=== PATIENT | male | born 1980 | race Caucasian/White ===

== ENCOUNTER → 2021-05-31 07:44 | Outpatient (CLI) | payer BC, OTHER, SELFPAY ==
[2021-05-31 10:34] LABS: COVID19 -Nasal RAPID POSITIVE (Negative)
== END ==
PROVIDERS: Visit Provider Physician Assistant
DX: U07.1 COVID-19 (principal)
CPT/HCPCS: 87635

== ENCOUNTER 2022-06-13 15:10 | Emergency (ER) | payer BC, OTHER, SELFPAY ==
[2022-06-13] VITALS (11 sets, daily range): BP systolic 129–135; BP diastolic 59–79; PULSE 72–82; RESP 15–16; TEMP 35.9; O2SAT 93–98; BMI 36.9
--- NOTE | 2022-06-13 15:24 | DI.CT.S_ITS ---
PROCEDURE: CT FACIAL BONES WO CON INDICATIONS: passed out at [facility], face planted into toolbox TECHNIQUE: Noncontrast 2.5 mm thick axial images acquired from the mandible through the frontal sinuses, with coronal and sagittal reformatting. For radiation dose reduction, the following was used: automated exposure control, adjustment of mA and/or kV according to patient size. COMPARISON: None. FINDINGS: Image quality: Excellent. Bones and teeth: Comminuted and displaced bilateral nasal bone fractures. Adjacent soft tissue swelling. Hemorrhage and packing material in the left nasal cavities. Remaining facial osseous structures intact. Partially visualized upper cervical spine is in normal alignment. Sinuses: Paranasal sinuses are aerated, without fluid levels, mucosal thickening, or mucoceles. Mastoid air cells are aerated. Soft tissues: There are a few tiny punctate radiopaque foreign bodies on the skin surface, potentially within small abrasions. Vascular: Visualized vascular structures appear normal in the absence of contrast. Bony vascular foramina and canals are intact. IMPRESSION: Bilateral comminuted and displaced bilateral nasal bone fractures with adjacent soft tissue swelling. Hemorrhage and packing material in the nasal cavities. No nasal septal fracture identified. Dictated by: Toan Guevara M.D. on 06/13/2022 at 15:54 Approved by: Toan Guevara M.D. on 06/13/2022 at 15:56
--- NOTE | 2022-06-13 15:24 | DI.CT.S_ITS ---
PROCEDURE: CT HEAD/BRAIN WO CON INDICATIONS: passed out at [facility], face planted into toolbox TECHNIQUE: Noncontrast 4.5 mm thick angled axial sections acquired from the foramen magnum to the vertex, with coronal and sagittal reformats. For radiation dose reduction, the following was used: automated exposure control, adjustment of mA and/or kV according to patient size. COMPARISON: None. FINDINGS: Image quality: Excellent. CSF spaces: Basal cisterns are patent. No extra-axial fluid collections. Ventricles are normal in size and shape. Brain: No midline shift. No intracranial masses or hemorrhage. Diaz-white matter interface is normal. Skull and face: Partially visualized nasal bone fractures, comminuted and displaced. Sinuses: Visualized sinuses and mastoids are clear. IMPRESSION: No acute intracranial finding. Dictated by: Toan Guevara M.D. on 06/13/2022 at 15:57 Approved by: Toan Guevara M.D. on 06/13/2022 at 15:57
--- NOTE | 2022-06-13 15:24 | DI.RAD.S_ITS ---
PROCEDURE: XR CHEST 1V INDICATIONS: chest pain TECHNIQUE: One view of the chest was acquired. COMPARISON: [facility], CT, CT FACIAL BONES WO CON, 06/13/2022, 15:30. FINDINGS: Surgical changes and devices: None. Lungs and pleura: Lungs are clear. No pleural effusions or pneumothorax. Mediastinum: Mediastinal contours appear normal. Heart size is normal. Bones and chest wall: No suspicious bony lesions. Overlying soft tissues appear unremarkable. IMPRESSION: No acute cardiopulmonary process demonstrated radiographically. Dictated by: Toan Guevara M.D. on 06/13/2022 at 15:58 Approved by: Toan Guevara M.D. on 06/13/2022 at 15:58
--- NOTE | 2022-06-13 16:20 | PC.NURSE ---
Pt has paper towels in nose with moderate bleeding from nares. Pt also has minor abrasions to right check.
--- NOTE | 2022-06-13 17:01 | PC.NURSE ---
Pt was getting a tattoo when he reports feeling dizzy and lightheaded. He got up to go to the bathroom then passed out and his face hit a toolbox. Pt has swelling and a laceration to his nose with abrasion to his right check. He denies changes in vision. Denies chest pain, SOB prior to event. Pt reports a history of 2 rhinoplasties for deviated septums in 2000 in 2004. Pt denies pain currently.
[2022-06-13] MEDS: SODIUM CHLORIDE 0.9% 1,000 ML 1000 ML IV (17:24)
[2022-06-13 17:27] LABS: Add Manual Diff / Slide Review NO; Basophils Absolute Auto 0 /uL (0-100); Basophils Percent Auto 0.2 % (0-2); Eosinophils Absolute Auto 100 /uL (0-450); Eosinophils Percent Auto 1.1 % (2-4); Hematocrit 42.6 % (41-53); Lymphocytes Absolute Auto 2100 /uL (1100-4500); Lymphocytes Percent Auto 16.1 % (25-40); Mean Corpuscular HGB Conc 35.3 % (30-36); Mean Corpuscular Hemoglobin 29.2 PG (26-34); Mean Corpuscular Volume 82.8 fL (80-100); Monocytes Absolute Auto 600 /uL (0-900); Monocytes Percent Auto 4.4 % (3-14); Neutrophils Absolute Auto 10300 /uL (1500-7000); Neutrophils Percent Auto 78.2 % (50-75); Platelet Count 201 X10^3/uL (150-400); Red Blood Cell Count 5.15 X10^6/uL (4.5-5.9); Red Cell Distribution Width 13.3 % (11.6-14.8); White Blood Cell Count 13.1 X10^3/uL (4.5-11.0)
[2022-06-13] MEDS: OXYMETAZOLINE NASAL SPRAY 15 ML 2 SPRAYS NASAL (17:28)
[2022-06-13 17:36] LABS: Alanine Aminotransferase 50 IU/L (<50); Albumin 4.9 g/dL (3.5-5.0); Albumin Globulin Ratio 1.3 (1.0-2.8); Alkaline Phosphatase 105 U/L (38-126); Aspartate Aminotransferase 38 IU/L (17-59); BUN Creatinine Ratio 19.2 (6-22); Bilirubin Total 0.5 mg/dL (0.2-1.3); Blood Urea Nitrogen 15 mg/dL (9-20); Calcium 9.5 mg/dL (8.4-10.2); Carbon Dioxide 25 mmol/L (22-32); Chloride 104 mmol/L (98-107); Creatine Kinase 89 U/L (55-170); Estimated Glomerular Filt Rate > 60 mL/min (>60); Globulin 3.8 g/dL (1.7-4.1); Glucose 96 mg/dL (70-100); HEMOLYSIS < 15 (0-50); Lipase 74 U/L (23-300); Magnesium 2.1 mg/dL (1.6-2.3); Potassium 4.2 mmol/L (3.4-5.1); Sodium 139 mmol/L (137-145); Total Protein 8.7 g/dL (6.3-8.2)
[2022-06-13 17:47] LABS: Troponin I < 0.012 ng/mL (0.01-0.034)
--- NOTE | 2022-06-13 18:14 | ED_ITS ---
HPI - Wound/Laceration General Chief Complaint: Wound/Laceration Stated Complaint: Fell into a tool box Time Seen by Provider: 06/13/22 17:14 Mode of arrival: Family Vehicle History of Present Illness HPI narrative: 42-year-old male nonsmoker without any significant medical history presents for evaluation of a syncopal episode. The patient had very little to eat and drink and was at a local tattoo parlor and had just started work on a new piece on his left hand. He had gone to the restroom and began to feel a bit lightheaded and upon returning to the workstation passed out, falling face 1st into the box of tattoo instruments. He woke up nearly immediately complaining of pain to his nose which was bleeding initially but had stopped prior to his arrival. Additionally he is got abrasion below his right eye. He is had no vomiting or diarrhea. Denies any neck or back pain. He takes no blood thinners. He has full recall of the event. Related Data Previous Rx's Medication Instructions Recorded benzonatate 100 mg capsule 100 mg PO BID-TID PRN cough #14 05/31/21 caps hydrocodone 5 mg-acetaminophen 325 1 tab PO Q4-6H PRN pain #10 tabs 06/13/22 mg tablet Allergies Allergy/AdvReac Type Severity Reaction Status Date / Time No Known Drug Allergies Allergy Unverified 06/13/22 15:20 Review of Systems Review of Systems Narrative: GENERAL: Denies chills, fatigue, malaise, fever, sweats. HEENT: See HPI RESPIRATORY: Denies dyspnea, cough, wheezing, hemoptysis, sputum. CARDIOVASCULAR: See HPI GASTROINTESTINAL: Denies nausea, vomiting, abdominal pain, diarrhea, constipation, melena. : Denies dysuria, frequency, incontinence, hematuria, urinary retention. MUSCULOSKELETAL: denies weakness, joint pain, or bony pain SKIN: See HPI NEUROLOGIC: Denies weakness, headache, numbness, change in speech, confusion, seizures, incoordination. PSYCHIATRIC: No concerning psychosocial issues. 12 point review of systems is negative except for those stated above Patient History Social History Smoking Status: Never smoker Smoking Status: Never smoker Exam Narrative Exam Narrative: GENERAL: [42] year old patient appears stated age. Well-developed patient, in mild distress. GCS 15 HEAD: Superficial abrasions to face, most notably under right eye and on bridge of nose. None deep enough to require repair. EYES: Pupils equal round and reactive. Extraocular motions intact. No scleral icterus. No injection or drainage. ENT: Fresh clots in bilateral nares, no evidence of nasal septal hematoma. Superficial abrasions on bridge of nose not deep enough to require repair.. Throat without erythema, tonsillar hypertrophy or exudate. Airway patent. NECK: Trachea midline. Non tender CARDIOVASCULAR: Regular rate and rhythm without murmurs, gallops, or rubs. RESPIRATORY: Clear to auscultation. Breath sounds equal bilaterally. No wheezes, rales, or rhonchi. GASTROINTESTINAL: Abdomen soft, non-tender, nondistended. EXTREMITIES: No edema or joint tenderness. BACK: Nontender without deformity or crepitance. No flank tenderness. NEURO: AOx3. SKIN: No rash or erythema of visible areas Initial Vital Signs Initial Vital Signs: Vital Signs Temperature 96.7 F L 06/13/22 15:17 Pulse Rate 72 06/13/22 15:17 Respiratory Rate 16 06/13/22 15:17 Blood Pressure 131/79 06/13/22 15:17 Pulse Oximetry 98 06/13/22 15:17 Oxygen Delivery Method 06/13/22 15:17 Course Orders Ordered: ED Orders 06/13/22 15:24 CT facial bones wo con Stat CT head/brain wo con Stat XR chest 1V Stat 06/13/22 16:14 EKG-12 Lead Stat 06/13/22 17:10 Complete Blood Count AUTO DIFF Stat Comprehensive Metabolic Panel Stat Lipase Stat Magnesium Stat Troponin & CK Cardiac Panel Stat Discontinued Medications Hydrocodone Bitart/Acetaminophen (Hydrocodone/Acet 5/325 Tablet) 2 tab PO NOW ONE Stop: 06/13/22 18:57 Sodium Chloride (Normal Saline 0.9%) 1,000 mls @ 1,000 mls/hr IV BOLUS ONE Stop: 06/13/22 18:14 Last Admin: 06/13/22 17:24 Dose: 1,000 mls/hr Documented By: TREE Oxymetazoline HCl (Oxymetazoline Nasal [place] 15 Ml) 2 sprays NASAL NOW ONE Stop: 06/13/22 17:26 Last Admin: 06/13/22 17:28 Dose: 2 sprays Documented By: LOBO Vital Signs Vital signs: Vital Signs - 8 hr 06/13/22 15:17 06/13/22 16:31 06/13/22 16:39 Temperature 96.7 F L Pulse Rate 72 75 77 Respiratory Rate 16 Blood Pressure 131/79 Pulse Oximetry 98 97 96 Oxygen Delivery Method Room Air 06/13/22 16:39 06/13/22 17:00 06/13/22 17:14 Temperature Pulse Rate 77 Respiratory Rate Blood Pressure 132/60 129/71 Pulse Oximetry 96 Oxygen Delivery Method Room Air 06/13/22 17:14 06/13/22 17:30 06/13/22 18:00 Temperature Pulse Rate 73 82 78 Respiratory Rate 15 Blood Pressure Pulse Oximetry 96 95 93 Oxygen Delivery Method 06/13/22 18:01 06/13/22 18:01 Temperature Pulse Rate 80 Respiratory Rate Blood Pressure 133/67 Pulse Oximetry 94 Oxygen Delivery Method MDM - Wound/Laceration Lab Data Result diagrams: 06/13/22 17:10 06/13/22 17:10 Labs: Lab Results 06/13/22 06/13/22 Range/Units 17:10 17:10 WBC 13.1 H (4.5-11.0) X10^3/uL RBC 5.15 (4.5-5.9) X10^6/uL Hgb 15.0 (13.5-17.5) g/dL Hct 42.6 (41-53) % MCV 82.8 (80-100) fL MCH 29.2 (26-34) PG MCHC 35.3 (30-36) % RDW 13.3 (11.6-14.8) % Plt Count 201 (150-400) X10^3/uL Neut % (Auto) 78.2 H (50-75) % Lymph % (Auto) 16.1 L (25-40) % [place] % (Auto) 4.4 (3-14) % Eos % (Auto) 1.1 L (2-4) % Baso % (Auto) 0.2 (0-2) % Neut # (Auto) 27591 H (6086-1377) /uL Lymph # (Auto) 2100 (1663-4066) /uL [place] # (Auto) 600 (0-900) /uL Eos # (Auto) 100 (0-450) /uL Baso # (Auto) 0 (0-100) /uL Sodium 139 (137-145) mmol/L Potassium 4.2 (3.4-5.1) mmol/L Chloride 104 (98-107) mmol/L Carbon Dioxide 25 (22-32) mmol/L BUN 15 (9-20) mg/dL Creatinine 0.78 (0.66-1.25) mg/dL Estimated GFR > 60 (>60) mL/min BUN/Creatinine Ratio 19.2 (6-22) Glucose 96 (70-100) mg/dL Calcium 9.5 (8.4-10.2) mg/dL Magnesium 2.1 (1.6-2.3) mg/dL Total Bilirubin 0.5 (0.2-1.3) mg/dL AST 38 (17-59) IU/L ALT 50 H (<50) IU/L Alkaline Phosphatase 105 (38-126) U/L Total Creatine Kinase 89 (55-170) U/L CK-MB (CK-2) TNP CK-MB (CK-2) Rel Index TNP Troponin I < 0.012 (0.01-0.034) ng/mL Total Protein 8.7 H (6.3-8.2) g/dL Albumin 4.9 (3.5-5.0) g/dL Globulin 3.8 (1.7-4.1) g/dL Albumin/Globulin Ratio 1.3 (1.0-2.8) Lipase 74 (23-300) U/L Imaging Data CT scan - head: Radiologist's Impression: [place] [address] CT Scan Report Signed Patient: Norberto Dominguez MR#: [id number] : 1980 Acct:[id number] Age/Sex: 42 / M Date of Service: 06/13/22 Loc: ED Accession Number: [id number] ?? Procedure: CT head/brain wo con Ordering Provider: Viridiana Morales D.O. PROCEDURE:? CT HEAD/BRAIN WO CON ? INDICATIONS:? passed out at [facility], face planted into toolbox ? TECHNIQUE:? Noncontrast 4.5 mm thick angled axial sections acquired from the foramen magnum to the vertex, with coronal and sagittal reformats.? For radiation dose reduction, the following was used:? automated exposure control, adjustment of mA and/or kV according to patient size.? ? COMPARISON:? None. ? FINDINGS:? Image quality:? Excellent.? ? CSF spaces:? Basal cisterns are patent.? No extra-axial fluid collections.? Michael tricles are normal in size and shape.? ? Brain:? No midline shift.? No intracranial masses or hemorrhage.? Diaz-white matter interface is normal.? ? Skull and face:? Partially visualized nasal bone fractures, comminuted and displaced. ? Sinuses:? Visualized sinuses and mastoids are clear.? ? IMPRESSION:? No acute intracranial finding. ? ? Dictated by: Toan Guevara M.D. on 06/13/2022 at 15:57 ? ? Approved by: Toan Guevara M.D. on 06/13/2022 at 15:57 ? CT Facial Bones: Radiologist's Impression: [place] [address] CT Scan Report Signed Patient: Norberto Dominguez MR#: [id number] : 1980 Acct:[id number] Age/Sex: 42 / M Date of Service: 06/13/22 Loc: ED Accession Number: [id number] ?? Procedure: CT facial bones wo con Ordering Provider: Viridiana Morales D.O. PROCEDURE:? CT FACIAL BONES WO CON ? INDICATIONS:? passed out at [facility], face planted into toolbox ? TECHNIQUE:? Noncontrast 2.5 mm thick axial images acquired from the mandible through the frontal sinuses, with coronal and sagittal reformatting.? For radiation dose reduction, the following was used:? automated exposure control, adjustment of mA and/or kV according to patient size.? ? COMPARISON:? None. ? FINDINGS:? Image quality:? Excellent.? ? Bones and teeth:? Comminuted and displaced bilateral nasal bone fractures.? Adjacent soft tissue swelling.? Hemorrhage and packing material in the left nasal cavities.? Remaining facial osseous structures intact.? Partially visualized upper cervical spine is in normal alignment. ? Sinuses:? Paranasal sinuses are aerated, without fluid levels, mucosal thicke marvin, or mucoceles.? Mastoid air cells are aerated.? ? Soft tissues:? There are a few tiny punctate radiopaque foreign bodies on the skin surface, potentially within small abrasions. ? Vascular:? Visualized vascular structures appear normal in the absence of contrast.? Bony vascular foramina and canals are intact.? ? IMPRESSION:? Bilateral comminuted and displaced bilateral nasal bone fractures with adjacent soft tissue swelling.? Hemorrhage and packing material in the nasal cavities.? No nasal septal fracture identified.? ? ? Dictated by: Toan Guevara M.D. on 06/13/2022 at 15:54 ? ? Approved by: Toan Guevara M.D. on 06/13/2022 at 15:56 ? MDM Narrative Medical decision making narrative: Patient with syncopal episode after painful experience, change in position, with minimal hydration or food presents with minor facial injuries. Small superficial laceration on bridge of nose, no nasal septal hematoma, able to marilee athe through both nares. Other imaging reassuring. Pain well controlled. Return precautions discussed and questions answered to their apparent satisfaction Discharge Plan Departure Patient Disposition: Home Clinical Impression: Syncope, Closed fracture nasal bone Instructions: DI for Nose Fracture Activity Restrictions/Additional Instructions: *You have been diagnosed with [syncope with nasal bone fracture.] *What to do: *Please continue to take your regular medications as directed. [x ] New medication prescriptions sent to your pharmacy: [[facility] in [place] ] [ ] New medication written as a paper prescription [ ] No new medications given *Please follow up with your primary care provider in 2-3 days, call for an appointment. Let them know you were seen in the Emergency Department and that we ask that you be seen in follow up. We will electronically transmit a record of today's note if your PCP is in our system * as we discussed, please reach out to Dr. Bro at [facility], call on Thursday for an appointment. They will likely get you seen a few weeks down the line once the swelling has improved to discuss options moving forward *Return to Emergency Department if you should have any new, worsening or concerning symptoms, such as [fever greater than 101 F, shaking chills, worsening pain, persistent vomiting or other bothersome symptoms] You have been prescribed a short course of narcotic medications. These are potentially dangerous and addictive medications that should be used carefully. While on these medications you cannot drive or operate heavy machinery. Additionally, you cannot sign legal documents or perform any duties such as this. 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 Please understand that we cannot provide further refills of narcotics or controlled substances through the ED and your pain management will need to be through your Primary Care Provider Prescriptions: New hydrocodone-acetaminophen 5-325 mg tablet 1 tab PO Q4-6H PRN (Reason: pain) Qty: 10 0RF No Action benzonatate 100 mg capsule 100 mg PO BID-TID PRN (Reason: cough) Qty: 14 0RF Referrals: Castro Bro MD [Physician] - Miscellaneous,DoctorMD [Primary Care Provider] -
[2022-06-13] MEDS: HYDROCODONE/ACET 5/325 TABLET 2 TAB PO (19:09)
== END 2022-06-13 19:17 | disposition home or self-care (01) ==
PROVIDERS: Emergency Medicine; Emergency Provider Emergency Medicine
DX: S02.2XXA Fracture of nasal bones, initial encounter for closed fracture (principal); R55 Syncope and collapse
CPT/HCPCS: 36415; 70450; 70486; 71045; 80053; 82550; 83690; 83735; 84484; 85025; 93005; 96360; 96361; 99284; A9270

== ENCOUNTER 2023-07-02 13:07 | Emergency (ER) | payer OTHER, SELFPAY ==
[2023-07-02 13:31] VITALS: BP 137/74; PULSE 69; RESP 18; TEMP 36.7; O2SAT 94; BMI 36.9
--- NOTE | 2023-07-02 13:39 | ED_ITS ---
HPI - Fall General Chief Complaint: Fall Stated Complaint: fell hit head at work Time Seen by Provider: 07/02/23 13:20 Source: patient and family Mode of arrival: Family Vehicle History of Present Illness HPI Narrative: 43-year-old male who is here for evaluation of injuries he sustained while he was at work. He states he sat in a chair and a wheel broke and he fell. He landed on his left hip and left elbow and then did hit his head. He is not on anticoagulation. He has been ambulatory since the event. There was no loss of consciousness. He has had some right-sided paraspinal neck pain. Pain in his right hip and right elbow as well. He is having a headache. Related Data Previous Rx's Medication Instructions Recorded benzonatate 100 mg capsule 100 mg PO BID-TID PRN cough #14 05/31/21 caps hydrocodone 5 mg-acetaminophen 325 1 tab PO Q4-6H PRN pain #10 tabs 06/13/22 mg tablet cyclobenzaprine 10 mg tablet 10 mg PO TID PRN muscle spasm #14 07/02/23 tabs Allergies Allergy/AdvReac Type Severity Reaction Status Date / Time No Known Drug Allergies Allergy Verified 07/02/23 13:38 Review of Systems Constitutional Constitutional: Reports system reviewed and no additional complaints, except as documented ENT Ears, Nose, Mouth, and Throat: Reports system reviewed and no additional complaints, except as documented Integumentary/Breasts Skin/Breast: Reports system reviewed and no additional complaints, except as documented Neurologic Neurologic: Reports system reviewed and no additional complaints, except as documented Hematologic/Lymphatic On Anticoagulants: No Patient History Social History Smoking Status: Never smoker Smoking Status: Never smoker alcohol intake frequency: 0-2 drinks per day Substance Use Type: does not use Exam Initial Vital Signs Initial Vital Signs: Vital Signs Temperature 98.1 F 07/02/23 13:31 Pulse Rate 69 07/02/23 13:31 Respiratory Rate 18 07/02/23 13:31 Blood Pressure 137/74 07/02/23 13:31 Pulse Oximetry 94 07/02/23 13:31 Oxygen Delivery Method Room Air 07/02/23 13:31 Const General: cooperative, comfortable and No ill appearing HENAZ Head: normal to inspection and normocephalic Face and sinus: normal facial exam Resp Effort & Inspection: normal respiratory effort Cardio Rate: regular rate Back/Spine/Pelvis Cervical Spine: cervical muscular tenderness and No cervical spinal tenderness Skin General: no rashes or lesions noted Neuro General: patient alert, patient awake and moves all extremities Extrem General: normal to inspection and capillary refill normal Scores GCS Pemberton coma scale eye opening: Spontaneous [place] coma scale verbal response: Orientated Ravin coma scale motor response: Obey commands Pemberton coma scale total score: 15 Nexus Score for C-Spine Focal Neurologic deficit present: No Midline spinal tenderness present: No Altered level of conciousness present: No Intoxication present: No Distracting Injury Present: No Nexus Criteria for C-spine: 0 Course Vital Signs Vital signs: Vital Signs - 8 hr 07/02/23 13:31 Temperature 98.1 F Pulse Rate 69 Respiratory Rate 18 Blood Pressure 137/74 Pulse Oximetry 94 Oxygen Delivery Method Room Air MDM - Fall MDM Narrative Medical decision making narrative: No external injuries noted. Has full range of motion of his right hip and right elbow. No indication for radiologic studies. He is right-sided paraspinal neck discomfort. Low suspicion for cervical spine injury. He is alert and oriented x3. Is having a headache and did hit his head. Does meet criteria for concussion. Did not lose consciousness. Not on blood thinners. No depressed skull fracture. No indication for head CT. Will discharge patient home with return precautions. He was given return precautions. He expressed understanding and agreement. Discharge Plan Departure Patient Disposition: Home Clinical Impression: Closed head injury, Cervical muscle strain Instructions: DI for Concussion Activity Restrictions/Additional Instructions: You can take Tylenol for any headaches. He was the muscle relaxers as needed for the neck discomfort. Contact your primary doctor for a follow-up. Return to the emergency department for new or worsening symptoms. Prescriptions: New cyclobenzaprine 10 mg tablet 10 mg PO TID PRN (Reason: muscle spasm) Qty: 14 0RF No Action benzonatate 100 mg capsule 100 mg PO BID-TID PRN (Reason: cough) Qty: 14 0RF hydrocodone-acetaminophen 5-325 mg tablet 1 tab PO Q4-6H PRN (Reason: pain) Qty: 10 0RF Referrals: Miscellaneous,DoctorMD [Primary Care Provider] - Stand Alone Forms: Patient Portal/API
[2023-07-02] MEDS: ONDANSETRON 4 MG ODT SL (14:20)
[2023-07-02] MEDS: ACETAMINOPHEN 325 MG TABLET 975 MG PO (14:20)
[2023-07-02 15:03] VITALS: BP 118/73; PULSE 69; O2SAT 93
== END 2023-07-02 15:03 | disposition home or self-care (01) ==
PROVIDERS: Emergency Provider Emergency Medicine
DX: S16.1XXA Strain of muscle, fascia and tendon at neck level, initial encounter (principal); S09.90XA Unspecified injury of head, initial encounter; R51.9 Headache, unspecified; M54.2 Cervicalgia; W07.XXXA Fall from chair, initial encounter
CPT/HCPCS: 99282; 99283

== ENCOUNTER 2024-04-08 17:29 | Emergency (ER) | payer BC, OTHER, SELFPAY ==
[2024-04-08 17:46] VITALS: BP 162/92; PULSE 72; RESP 18; TEMP 36.3; O2SAT 97; BMI 36.9
--- NOTE | 2024-04-08 18:09 | DI.CT.S_ITS ---
PROCEDURE: CT KIDNEY URETER BLADDER (KUB) INDICATIONS: right flank pain, ? stone TECHNIQUE: Axial sections were acquired from the lung bases to the pubic symphysis. Coronal and sagittal reformats were performed. For radiation dose reduction, the following was used: automated exposure control, adjustment of mA and/or kV according to patient size. COMPARISON: None. FINDINGS: Image quality: Diagnostic. Lower Chest: No significant findings. URINARY: Kidneys and ureters: 3 mm calculus is seen at the distal right ureter near the ureterovesicular junction. Mild left hydroureter with periureteral fat stranding. No significant hydronephrosis. No additional non-obstructing calculus is seen. Bladder: Normal wall thickness. No stones. ABDOMEN: Liver: No contour-deforming solid mass. Gallbladder: No radiopaque gallstones or wall thickening. Biliary ducts: No biliary dilation. Pancreas: No ductal dilation. Spleen: Size is within normal limits. Adrenal Glands: No adrenal nodules. Stomach and Bowel: Small hiatal hernia. Distal colon is nondistended, which compromises evaluation. Probable prior appendectomy. Small bowel loops are unremarkable. Peritoneum: No abnormal intraperitoneal fluid. No free air. Ventral Wall: No hernia. Abdominal Nodes: No enlarged retroperitoneal or mesenteric lymph nodes. Vessels: Aorta and inferior vena cava are normal in size. PELVIS: Pelvic Organs: Unremarkable. Pelvic Nodes: Unremarkable. Miscellaneous: No inguinal hernias are seen. Bones: Unremarkable. IMPRESSION: Right distal ureteral 3 mm calculus with mild periureteral fat stranding and trace right hydroureter. No significant hydronephrosis. Approved by: Tree Farrell M.D. on 04/08/2024 at 19:13
--- NOTE | 2024-04-08 18:09 | ED.BACK ---
HPI - Back Pain/Injury General Chief Complaint: Back Pain/Injury Stated Complaint: extreme sharp pains in side and testicle Time Seen by Provider: 04/08/24 18:08 Source: patient, family, RN notes reviewed and old records reviewed Mode of arrival: Ambulatory Limitations: no limitations History of Present Illness HPI Narrative: 44-year-old male on Ozempic who presents with complaint of sudden onset of right flank pain wrapping around slightly to the anterior. Patient has not had similar symptoms in the past. Describes it as quite intense. No fevers. He has had nausea and vomiting. No issues with bowel movements, no black or bloody stools. Patient has not had dysuria urgency or frequency but notes that he had brownish discolored urine yesterday. Patient states upset because his only daily medication. Denies any prior surgeries. No known drug allergies. Denies tobacco, alcohol or recreational drugs. Related Data Previous Rx's Medication Instructions Recorded benzonatate 100 mg capsule 100 mg PO BID-TID PRN cough #14 05/31/21 caps hydrocodone 5 mg-acetaminophen 325 1 tab PO Q4-6H PRN pain #10 tabs 06/13/22 mg tablet cyclobenzaprine 10 mg tablet 10 mg PO TID PRN muscle spasm #14 07/02/23 tabs ondansetron 4 mg disintegrating 4 mg PO Q6H PRN nausea and 07/02/23 tablet vomiting #14 tabs ondansetron 4 mg disintegrating 4 mg PO Q6H PRN nausea and 04/08/24 tablet vomiting #7 tabs oxycodone 5 mg tablet 5 mg PO Q6H PRN pain #14 tabs 04/08/24 tamsulosin 0.4 mg capsule (Flomax) 0.4 mg PO DAILY #7 caps 04/08/24 Allergies Allergy/AdvReac Type Severity Reaction Status Date / Time No Known Drug Allergies Allergy Verified 04/08/24 17:46 Review of Systems Review of Systems ROS Unobtainable: All systems reviewed & are unremarkable except as noted in HPI and below Patient History Social History Smoking Status: Never smoker Smoking Status: Never smoker alcohol intake frequency: 0-2 drinks per day Substance Use Type: does not use Exam Narrative Exam Narrative: GENERAL: Alert and oriented x three, patient is diaphoretic appears to be in moderate HEENT: Head normocephalic, atraumatic, EOMI, pupils reactive, face symmetric, moist mucous membranes NECK: Supple, full range of motion CARDIOVASCULAR: Regular rate and rhythm without murmurs, rubs or gallops. RESPIRATORY: Breath sounds equal bilaterally, no wheezes rales or rhonchi. ABDOMEN: Soft, nontender. Normoactive bowel sounds all 4 quadrants. No guarding or rebound, rigidity, no mass : Very slight rate CVA tenderness, no left CVA tenderness. EXTREMITIES: Normal range of motion, no clubbing or edema. Neurovascularly intact NEUROLOGICAL: Cranial nerves II through XII grossly intact. Moving all extremities SKIN: Warm, dry, no petechiae, no rashes or lesions. Initial Vital Signs Initial Vital Signs: Vital Signs Temperature 97.3 F L 04/08/24 17:46 Pulse Rate 72 04/08/24 17:46 Respiratory Rate 18 04/08/24 17:46 Blood Pressure 162/92 H 04/08/24 17:46 Pulse Oximetry 97 04/08/24 17:46 Oxygen Delivery Method Room Air 04/08/24 17:46 Course Orders Ordered: Discontinued Medications Hydromorphone HCl (Hydromorphone 1 Mg Inj) 1 mg IV NOW ONE Stop: 04/08/24 18:30 Last Admin: 04/08/24 18:32 Dose: 1 mg Documented By: JR Hydromorphone HCl (Hydromorphone 1 Mg Inj) 1 mg IV NOW ONE Stop: 04/08/24 20:51 Last Admin: 04/08/24 21:01 Dose: 1 mg Documented By: LUIS Sodium Chloride (Normal Saline 0.9%) 1,000 mls @ 1,000 mls/hr IV BOLUS ONE Stop: 04/08/24 19:08 Last Infusion: 04/08/24 19:31 Dose: Infused Documented By: Admin: 04/08/24 18:23 Dose: 1,000 mls/hr Documented By: JR Lidocaine HCl 9 ml/ Sodium (Chloride) 59 mls @ 354 mls/hr IV NOW ONE Stop: 04/08/24 19:34 Last Infusion: 04/08/24 20:24 Dose: Infused Documented By: Admin: 04/08/24 19:43 Dose: 354 mls/hr Documented By: LUIS Ketorolac Tromethamine (Ketorolac 30 Mg/Ml Vial) 15 mg IV NOW ONE Stop: 04/08/24 18:10 Last Admin: 04/08/24 18:22 Dose: 15 mg Documented By: JR Ondansetron HCl (Ondansetron 4 Mg/2 Ml Inj) 4 mg IV NOW ONE Stop: 04/08/24 18:10 Last Admin: 04/08/24 18:20 Dose: 4 mg Documented By: JR Ondansetron HCl (Ondansetron 4 Mg/2 Ml Inj) 4 mg IV NOW ONE Stop: 04/08/24 20:51 Last Admin: 04/08/24 21:01 Dose: 4 mg Documented By: LUIS Ondansetron HCl (Ondansetron 4 Mg Odt Prepack) 1 bottle MISC DIRECTED ONE Stop: 04/08/24 22:07 Last Admin: 04/08/24 22:17 Dose: 1 bottle Documented By: ANTONELLA Oxycodone/Acetaminophen (Oxycodone/Apap 5/325 Prepack) 1 bottle MISC DIRECTED ONE Stop: 04/08/24 22:07 Last Admin: 04/08/24 22:17 Dose: 1 bottle Documented By: ANTONELLA Tamsulosin HCl (Tamsulosin 0.4 Mg Capsule) 0.4 mg PO NOW ONE Stop: 04/08/24 20:51 Last Admin: 04/08/24 21:02 Dose: 0.4 mg Documented By: LUIS Vital Signs Vital signs: Vital Signs - 8 hr 04/08/24 22:20 Pulse Rate 84 Respiratory Rate 16 Blood Pressure 142/65 H Pulse Oximetry 100 Oxygen Delivery Method Room Air MDM - Back Pain/Injury Lab Data 04/08/24 18:04 04/08/24 18:04 Labs: Lab Results 04/08/24 04/08/24 Range/Units 18:04 20:25 WBC 12.8 H (4.5-11.0) X10^3/uL RBC 5.01 (4.5-5.9) X10^6/uL Hgb 14.2 (13.5-17.5) g/dL Hct 41.9 (41-53) % MCV 83.7 (80-100) fL MCH 28.3 (26-34) PG MCHC 33.8 (30-36) % RDW 13.4 (11.6-14.8) % Plt Count 222 (150-400) X10^3/uL Neut % (Auto) 64.9 (50-75) % Lymph % (Auto) 25.2 (25-40) % [place] % (Auto) 6.3 (3-14) % Eos % (Auto) 3.0 (2-4) % Baso % (Auto) 0.6 (0-2) % Neut # (Auto) 8300 H (6532-4530) /uL Lymph # (Auto) 3200 (5688-3643) /uL [place] # (Auto) 800 (0-900) /uL Eos # (Auto) 400 (0-450) /uL Baso # (Auto) 100 (0-100) /uL Sodium 141 (137-145) mmol/L Potassium 3.9 (3.4-5.1) mmol/L Chloride 108 H (98-107) mmol/L Carbon Dioxide 23 (22-32) mmol/L BUN 17 (9-20) mg/dL Creatinine 1.00 (0.66-1.25) mg/dL Estimated GFR > 60 (>60) mL/min BUN/Creatinine Ratio 17.0 (6-22) Glucose 116 H (70-100) mg/dL Calcium 9.9 (8.4-10.2) mg/dL Total Bilirubin 0.5 (0.2-1.3) mg/dL AST 41 (17-59) IU/L ALT 38 (<50) IU/L Alkaline Phosphatase 120 (38-126) U/L Total Protein 8.7 H (6.3-8.2) g/dL Albumin 4.8 (3.5-5.0) g/dL Globulin 3.9 (1.7-4.1) g/dL Albumin/Globulin Ratio 1.2 (1.0-2.8) Lipase 163 (23-300) U/L Urine RBC >100/hpf H (0-5/HPF) Urine WBC 0-1/hpf (0-5/HPF) Ur Squamous Epith Cells 0-1 /hpf (0-5/HPF) Amorphous Sediment 3+ Urine Bacteria None seen (None) Ur Culture Indicated? Cult not indicated Vol Urine Centrifuged 10ml (spun) Urine Dip Bedside Urine Glucose Negative Bedside Urine Bilirubin - Negative Bedside Urine Ketone - Negative Urine Specific [place] 1.010 Bedside Urine Occult Blood +++ Bedside Urine pH 9.0 Bedside Urine Protein - Negative Bedside Urine Urobilinogen - Negative Bedside Urine Nitrite - Negative Bedside Urine Leukocytes - Negative Esterase MDM Narrative Medical decision making narrative: 44-year-old male with symptoms seem most consistent with kidney stone sudden onset right flank pain wish report of brownish urine the day prior. Labs white count of 12.8, hemoglobin of 14, platelets of 222. Chemistries show a chloride of 108, glucose of 116, creatinine is 1 with a BUN of 17 arrives appropriate electrolytes. Lipase is 163. Urine shows blood, 1 white cell, [address] KUB, right distal ureteral 3 mm calculus with mild periureteral fat stranding and trace right hydroureter, no significant hydro. Patient received fluids, Toradol and Zofran. Patient had minimal improvement was much more improved after Dilaudid. Patient's pain then returned and was received lidocaine IV patient still painful but does appear more relaxed he has not diaphoretic anymore. On recheck we will give additional dose of pain medication, patient did state he threw up 1 or 2 more times since. We will give another dose of Zofran and try Flomax. Patient starting to feel improved he has been able to tolerate orals. We will discharge home with prepack as well as return precautions. Discharge Plan Departure Patient Disposition: Home Clinical Impression: Calculus of right kidney Instructions: DI for Kidney Stones Activity Restrictions/Additional Instructions: Follow up with Urology in the next several days if your symptoms are not improving. You have a 3 mm kidney stone right side which should likely pass in the next 24 to 48 hours. Take Flomax once daily until gone. You may take 1 tablet of Zofran every 6 hours as needed for nausea/vomiting. Take Tylenol up to a 1000 mg every 6 hours and/or ibuprofen up to 600 every 6 pain. If inadequate for pain you can take 1-2 tablets of oxycodone every 6 hours as needed. This medication can make you sleepy do not drive, perform hazardous activities or make any major decisions while taking it. This medication will make you constipated please take a stool softener once to twice daily until stools are soft and regular. Prescription sent to [facility] Please return for fevers, rapidly worsening pain, persistent vomiting, inability to urinate, lightheadedness or passing out or other or concerning changes. Prescriptions: New tamsulosin [Flomax] 0.4 mg capsule 0.4 mg PO DAILY Qty: 7 0RF ondansetron 4 mg tablet,disintegrating 4 mg PO Q6H PRN (Reason: nausea and vomiting) Qty: 7 0RF oxycodone 5 mg tablet 5 mg PO Q6H PRN (Reason: pain) Qty: 14 0RF No Action benzonatate 100 mg capsule 100 mg PO BID-TID PRN (Reason: cough) Qty: 14 0RF cyclobenzaprine 10 mg tablet 10 mg PO TID PRN (Reason: muscle spasm) Qty: 14 0RF ondansetron 4 mg tablet,disintegrating 4 mg PO Q6H PRN (Reason: nausea and vomiting) Qty: 14 0RF hydrocodone-acetaminophen 5-325 mg tablet 1 tab PO Q4-6H PRN (Reason: pain) Qty: 10 0RF Referrals: Leora Trimble MD [Physician] - Miscellaneous,MD Gold [Primary Care Provider] - Stand Alone Forms: Patient Portal/API
[2024-04-08] MEDS: ONDANSETRON 4 MG/2 ML INJ IV ×2 (18:20→21:01)
[2024-04-08] MEDS: KETOROLAC 30 MG/ML VIAL 15 MG IV (18:22)
[2024-04-08] MEDS: SODIUM CHLORIDE 0.9% 1,000 ML 1000 ML IV (18:23)
[2024-04-08] MEDS: HYDROMORPHONE 1 MG INJ IV ×2 (18:32→21:01)
[2024-04-08 18:35] LABS: Add Manual Diff / Slide Review NO; Basophils Absolute Auto 100 /uL (0-100); Basophils Percent Auto 0.6 % (0-2); Eosinophils Absolute Auto 400 /uL (0-450); Hematocrit 41.9 % (41-53); Hemoglobin 14.2 g/dL (13.5-17.5); Lymphocytes Absolute Auto 3200 /uL (1100-4500); Lymphocytes Percent Auto 25.2 % (25-40); Mean Corpuscular HGB Conc 33.8 % (30-36); Mean Corpuscular Hemoglobin 28.3 PG (26-34); Mean Corpuscular Volume 83.7 fL (80-100); Monocytes Absolute Auto 800 /uL (0-900); Monocytes Percent Auto 6.3 % (3-14); Neutrophils Absolute Auto 8300 /uL (1500-7000); Neutrophils Percent Auto 64.9 % (50-75); Platelet Count 222 X10^3/uL (150-400); Red Blood Cell Count 5.01 X10^6/uL (4.5-5.9); Red Cell Distribution Width 13.4 % (11.6-14.8); White Blood Cell Count 12.8 X10^3/uL (4.5-11.0)
[2024-04-08 19:03] LABS: Alanine Aminotransferase 38 IU/L (<50); Albumin 4.8 g/dL (3.5-5.0); Albumin Globulin Ratio 1.2 (1.0-2.8); Alkaline Phosphatase 120 U/L (38-126); Aspartate Aminotransferase 41 IU/L (17-59); Bilirubin Total 0.5 mg/dL (0.2-1.3); Blood Urea Nitrogen 17 mg/dL (9-20); Calcium 9.9 mg/dL (8.4-10.2); Carbon Dioxide 23 mmol/L (22-32); Chloride 108 mmol/L (98-107); Estimated Glomerular Filt Rate > 60 mL/min (>60); Globulin 3.9 g/dL (1.7-4.1); Glucose 116 mg/dL (70-100); HEMOLYSIS < 15 (0-50); Lipase 163 U/L (23-300); Potassium 3.9 mmol/L (3.4-5.1); Sodium 141 mmol/L (137-145); Total Protein 8.7 g/dL (6.3-8.2)
[2024-04-08] MEDS: LIDOCAINE 2% (PF) 9 ML in SODIUM CHLORIDE 0.9% 50 ML 354 ML IV (19:43)
[2024-04-08 20:47] LABS: Amorphous Sediment Urine 3+; Bacteria Urine None Seen; Culture Indicated Urine Cult Not Indicated; RBC Urine >100/HPF (0-5/HPF); Squamous Epithelial Cell Urine 0-1 /HPF (0-5/HPF); Urine Volume 10mL (spun); WBC Urine 0-1/HPF (0-5/HPF)
[2024-04-08] MEDS: TAMSULOSIN 0.4 MG CAPSULE PO (21:02)
[2024-04-08] MEDS: ONDANSETRON 4 MG ODT PREPACK 1 BOTTLE MISC (22:17)
[2024-04-08] MEDS: OXYCODONE/APAP 5/325 PREPACK 1 BOTTLE MISC (22:17)
[2024-04-08 22:20] VITALS: BP 142/65; PULSE 84; RESP 16; O2SAT 100
== END 2024-04-08 22:25 | disposition home or self-care (01) ==
PROVIDERS: Emergency Provider Emergency Medicine
DX: N20.0 Calculus of kidney (principal)
CPT/HCPCS: 74176; 80053; 81003; 81015; 83690; 85025; 96361; 96365; 96375; 96376; 99284; J1170; J1885; J2405

== ENCOUNTER → 2025-08-09 10:18 | Outpatient (CLI) | payer BC, OTHER, SELFPAY ==
[2025-08-09 10:55] LABS: Add Manual Diff / Slide Review NO; Hematocrit 45.0 % (41-53); Hemoglobin 15.6 g/dL (13.5-17.5); Lymphocytes Absolute Auto 1500 /uL (1100-4500); Mean Corpuscular HGB Conc 34.7 % (30-36); Mean Corpuscular Hemoglobin 29.6 PG (26-34); Mean Corpuscular Volume 85.2 fL (80-100); Platelet Count 213 X10^3/uL (150-400)
[2025-08-09 11:26] LABS: Alanine Aminotransferase 33 IU/L (<50); Albumin 4.9 g/dL (3.5-5.0); Albumin Globulin Ratio 1.4 (1.0-2.8); Alkaline Phosphatase 101 U/L (38-126); Blood Urea Nitrogen 11 mg/dL (9-20); Calcium 9.9 mg/dL (8.4-10.2); Carbon Dioxide 29 mmol/L (22-32); Chloride 102 mmol/L (98-107); Cholesterol 168 mg/dL (140-199); Estimated Glomerular Filt Rate > 60 mL/min (>60); Globulin 3.5 g/dL (1.7-4.1); Glucose 96 mg/dL (70-99); HDL Cholesterol 36 mg/dL (40-60); HEMOLYSIS < 15 (0-50); Potassium 4.1 mmol/L (3.4-5.1); Sodium 142 mmol/L (137-145); Total Protein 8.4 g/dL (6.3-8.2); Triglycerides 153 mg/dL (35-150)
== END ==
PROVIDERS: PCP Family Medicine; Referring Provider Family Medicine; Visit Provider Family Medicine
DX: Z12.5 Encounter for screening for malignant neoplasm of prostate (principal); Z86.39 Personal history of other endocrine, nutritional and metabolic disease; R53.83 Other fatigue; N52.9 Male erectile dysfunction, unspecified
CPT/HCPCS: 36415; 80053; 80061; 84402; 84403; 85025; G0103